=== PATIENT | male | born 1975 | race Caucasian/White ===

== ENCOUNTER 2017-02-27 20:22 | Emergency (ER) | payer MEDICAID ==
[2017-02-27 20:24] VITALS: BMI 29.9
[2017-02-27 20:39] VITALS: TEMP 98.4
[2017-02-27] MEDS ORDERED: TDAP Vaccine 0.5 mL Syr IM ONE (21:38)
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
[2017-02-28 00:19] VITALS: BP 127/86; PULSE 85; RESP 17; O2SAT 97
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
== END 2017-02-28 00:20 | disposition home or self-care (01) ==
LOC: ED 20:22
DX: S00.01XA Abrasion of scalp, initial encounter (principal); S60.221A Contusion of right hand, initial encounter; V13.4XXA Pedal cycle driver injured in collision with car, pick-up truck or van in traffic accident, initial encounter; Y93.55 Activity, bike riding; Y92.410 Unspecified street and highway as the place of occurrence of the external cause; Z23 Encounter for immunization

== ENCOUNTER 2017-03-28 06:39 | Emergency (ER) | payer MEDICAID ==
[2017-03-28 06:39] VITALS: BMI 29.9
[2017-03-28 06:48] VITALS: RESP 18; TEMP 98.2
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
[2017-03-28 08:16] LABS: PH,URINE 6.5 (4.7-8.0); URINE BILIRUBIN NEGATIVE (NEGATIVE); URINE BLOOD NEGATIVE (NEGATIVE); URINE GLUCOSE (UA) NEGATIVE (NEGATIVE); URINE KETONE NEGATIVE (NEGATIVE); URINE LEUKOCYTE ESTERASE NEGATIVE Leu/uL (NEGATIVE); URINE PROTEIN NEGATIVE mg/dL (<30 mg/dL)
[2017-03-28 08:17] LABS: URINE APPEARANCE CLEAR (CLEAR); URINE COLOR YELLOW (YELLOW)
[2017-03-28 09:16] VITALS: BP 122/76; PULSE 78; O2SAT 98
== END 2017-03-28 09:16 | disposition home or self-care (01) ==
LOC: ED 06:39
DX: M54.9 Dorsalgia, unspecified (principal)
CPT/HCPCS: 74176; 81003; 96372; 99283; J1885